=== PATIENT | female | born 1945 | race African-American/Black ===

== ENCOUNTER → 2016-12-28 | Outpatient (CLI) | payer OTHER ==
[~2016-12-28] MED LIST: ATOR-24 PO; CALCTAB7 PO; GLC/500 PO; HYDR-5688 PO; LISI-461 PO; MULT-506 PO; SYN125 PO; TRAZ50TA35 PO
[2016-12-30 15:15] LABS: THYROGLOBULIN 0.4 NG/ML (2.8-40.9)
== END | disposition home or self-care (01) ==
LOC: C.LABMFLN 07:48
PROVIDERS: ATTEND Internal Medicine Endocrinology, Diabetes & Metabolism
DX: C73 Malignant neoplasm of thyroid gland (principal)